=== PATIENT | male | born 1950 | race Caucasian/White ===

== ENCOUNTER 2020-03-11 02:42 | Outpatient (CLI) | payer MEDICARE, SELFPAY ==
[2020-03-11 18:39] LABS: SARS-CoV-2 RNA PCR Negative
== END 2020-03-11 02:43 | disposition home or self-care (01) ==
LOC: ANHCOVIDDT 02:42
PROVIDERS: PCP Internal Medicine; Visit Provider Internal Medicine Gastroenterology
DX: Z01.812 Encounter for preprocedural laboratory examination (principal); Z20.828 Contact with and (suspected) exposure to other viral communicable diseases
CPT/HCPCS: 87635; C9803; U0003

== ENCOUNTER 2020-03-13 00:24 | Day surgery (SDC) | payer MEDICARE, SELFPAY ==
[2020-03-06 13:56] VITALS: BMI 30.4
[2020-03-13 07:19] VITALS: BMI 31.4
[2020-03-13 07:20] VITALS: BP 151/74; PULSE 55; RESP 15; TEMP 36.7; O2SAT 98
--- NOTE | 2020-03-13 07:30 | WPDANESEPPF ---
Anes - Initial Pre Proc Eval Procedure: Operation Date: 03/13/20 08:30 Proposed Procedures p Screening Colonoscopy - Hasmukh Wick MD Date/Time: 03/13/20 07:30 Surgeon: Hasmukh Wick MD Pre Op Diagnosis: Hx Of Polyps Patient Data Age: 69 Gender: M Height: 1.73 m Weight: 93.9 kg Last Vital Signs Temp 36.7 C 03/13/20 07:20 Pulse 55 L 03/13/20 07:20 Resp 15 03/13/20 07:20 BP 151/74 H 03/13/20 07:20 Pulse Ox 98 03/13/20 07:20 Allergies Allergy/AdvReac Type Severity Reaction Status Date / Time tetracycline Allergy Hives Verified 03/13/20 07:18 Home Medications Medication Instructions Recorded Confirmed Type aspirin [Adult Low Dose Aspirin] 81 mg PO DAILY 03/06/20 03/13/20 History bupropion HCl [Wellbutrin XL] 150 mg PO DAILY 03/06/20 03/13/20 History clorazepate dipotassium 7.5 mg PO DAILY 03/06/20 03/13/20 History losartan 50 mg PO DAILY 03/06/20 03/13/20 History metoprolol succinate 50 mg PO DAILY 03/06/20 03/13/20 History Patient hx anesthesia problems: none Family hx anesthesia problems: none PMFSH Past Medical History Medical History Anxiety HTN (hypertension) Obesity Surgical History Surgical History (Updated 03/13/20 @ 07:31 by Beau Fernández MD) Hx of spinal surgery cervical Fusion Social History Social History Gender identity (if verbalized by the patient): Male Anes - Eval Final PreProcedure Day of Procedure 03/13/20 07:30 Patient weight: obese Heart: regular rate and rhythm Lungs: clear to auscultation and normal air movement Airway: Mallampati scale class II Neurological: alert and oriented Last oral intake: >/= 8 hours ASA classification: III Emergent: no Anesthetic plan: proceed Anesthesia type and monitoring: general GIVS Informed Consent: The patient's anesthetic plan and its attendant risks and benefits were discussed with the patient/family/POA. Questions were solicited and answers provided to the satisfaction of the patient/family/POA.
[2020-03-13] MEDS: LACTATED RINGERS 1,000 ML 150 ML IV CONT (07:31)
--- NOTE | 2020-03-13 07:43 | PM.HPGS ---
History of Present Illness History of Present Illness Consent: Risks, benefits, and alternatives have been discussed and questions answered. Patient agrees to proceed with procedure. Chief complaint: Hx Of Polyps Narrative: Maxwell Henry is a 69 year old male with a history of polyps. [facility] Past Medical History Medical History Anxiety HTN (hypertension) Obesity Surgical History Surgical History (Updated 03/13/20 @ 07:31 by Beau Fernández MD) Hx of spinal surgery cervical Fusion Social History Social History Gender identity (if verbalized by the patient): Male Meds Home Medications and Allergies Home Medications Medication Instructions Recorded Confirmed Type aspirin [Adult Low Dose Aspirin] 81 mg PO DAILY 03/06/20 03/13/20 History bupropion HCl [Wellbutrin XL] 150 mg PO DAILY 03/06/20 03/13/20 History clorazepate dipotassium 7.5 mg PO DAILY 03/06/20 03/13/20 History losartan 50 mg PO DAILY 03/06/20 03/13/20 History metoprolol succinate 50 mg PO DAILY 03/06/20 03/13/20 History Allergies Allergy/AdvReac Type Severity Reaction Status Date / Time tetracycline Allergy Hives Verified 03/13/20 07:18 Vital Signs Vital Signs - 24 hr 03/13/20 07:20 Temperature 36.7 C Pulse Rate 55 L Respiratory Rate 15 Blood Pressure 151/74 H Pulse Oximetry 98 Exam Resp: Auscultation: clear to auscultation bilaterally Cardio: Rate: regular rate Rhythm: regular rhythm GI: GI Palp: Yes Soft to palpation and No Tenderness to palpation present (GI) Assessment and Plan Assessment and plan (1) Personal history of colonic polyps: Code(s): Z86.010 - Personal history of colonic polyps Status: Acute Assessment and Plan: Colonoscopy with possible biopsy or polypectomy or cautery or injection of substances.
[2020-03-13 08:43] VITALS: BP 88/56; PULSE 61; RESP 21; O2SAT 96
[2020-03-13 08:53] VITALS: BP 105/68; PULSE 61; RESP 22; O2SAT 97
[2020-03-13 09:03] VITALS: BP 112/75; PULSE 56; RESP 21; O2SAT 97
[2020-03-13 09:10] VITALS: BP 114/68; PULSE 56; RESP 20; O2SAT 97
== END 2020-03-13 09:18 | disposition home or self-care (01) ==
PROVIDERS: PCP Internal Medicine; Visit Provider Internal Medicine Gastroenterology
PROC: 0DJD8ZZ Inspection of Lower Intestinal Tract, Via Natural or Artificial Opening Endoscopic (ICD-10-PCS; CPT 45378; principal; 2020-03-13 08:30)
DX: Z12.11 Encounter for screening for malignant neoplasm of colon (principal); K62.1 Rectal polyp; I10 Essential (primary) hypertension; F41.9 Anxiety disorder, unspecified; Z79.82 Long term (current) use of aspirin; E66.9 Obesity, unspecified; Z68.31 Body mass index [BMI] 31.0-31.9, adult; Z98.1 Arthrodesis status
CPT/HCPCS: 45380; 88305; J2704; J7120

== ENCOUNTER 2020-07-14 08:09 | Outpatient (CLI) | payer MEDICARE, SELFPAY ==
--- NOTE | ~2020-07-14 | XR_ITS ---
EXAMINATION: XR chest 2V DATE: 07/14/2020 08:37 INDICATION: Prostate cancer TECHNIQUE: PA and lateral views of the chest are obtained. COMPARISON: None available FINDINGS: The lungs are free of acute opacities. There is no pleural effusion or pneumothorax. The ca rdiomediastinal silhouette is normal. There is mild thoracic spondylosis. There are partially imaged changes of cervical fusion procedure. IMPRESSION: 1. No acute cardiopulmonary abnormality. Reviewed, dictated and finalized at location A. RECONDITIONER
--- NOTE | ~2020-07-14 | NM_ITS ---
NM bone scan whole body INDICATION: Prostate cancer TECHNIQUE: The patient was injected with 24.2 mCi Tc 99m HDP. Gamma camera images of the region of i nterest and whole body were obtained. COMPARISON: None FINDINGS: There is mild uptake in the shoulders, right elbow, left knee, left ankle and right foot, c ompatible with degenerative joint disease. No suspicious foci of uptake are identified to suggest met astases. IMPRESSION: 1: Normal bone scan for age. Reviewed, dictated and finalized at location A. R RUNNER
== END 2020-07-14 08:10 | disposition home or self-care (01) ==
PROVIDERS: PCP Internal Medicine; Visit Provider Urology
DX: C61 Malignant neoplasm of prostate (principal)
CPT/HCPCS: 71046; 78306; A9561

== ENCOUNTER 2020-07-21 09:55 | Outpatient (CLI) | payer MEDICARE, SELFPAY ==
--- NOTE | ~2020-07-21 | MR_ITS ---
EXAMINATION: MR pelvis wo/w con INDICATION: Prostate cancer TECHNIQUE: Coronal SSFSE ARC, Axial and Coronal 2D FIESTA FatSat, 3D Axial T2 Cube, Axial SSFSE BH AR C, Axial 3D DualEcho BH, Axial SSFSE-IR Be, Axial DWI b=600, pre and dynamic postcontrast Axial LAVA ARC, WATER:POST Cor LAVA-FLEX COMPARISON: None CONTRAST: Multihance, 20 cc FINDINGS: The prostate is mildly enlarged. There is T1 hyperintensity in the peripheral zones of the prostate, left greater than right, likely related to biopsy. There are no pathologically enlarged pel nigel lymph nodes. No dilated loops of bowel are identified. There is no pelvic ascites. There is mild osteoarthritis of the hips. Mild bladder wall thickening likely reflects chronic outlet obstruction. IMPRESSION: 1. Postbiopsy changes of the prostate. 2. No evidence of metastatic disease. Reviewed, dictated and finalized at location A. RINARY PRACTICE MANAGER
[2020-07-21 10:36] LABS: Estimated Glomerular Filt Rate > 60
== END 2020-07-21 09:56 | disposition home or self-care (01) ==
PROVIDERS: PCP Internal Medicine; Visit Provider Urology
DX: C61 Malignant neoplasm of prostate (principal)
CPT/HCPCS: 72197; A9577

== ENCOUNTER 2020-08-31 09:51 | Outpatient (CLI) | payer MEDICARE, SELFPAY ==
[2020-08-31 11:04] LABS: Basophils Absolute Auto 0.1 K/mm3 (0.0-0.1); Basophils Percent Auto 0.5 % (0.2-1.2); Eosinophils Absolute Auto 0.2 K/mm3 (0-0.3); Eosinophils Percent Auto 2.3 % (0-4.4); Hematocrit 46.6 % (42.0-52.0); Immature Granulocyte Absolute 0.03 K/mm3 (0.00-0.031); Immature Granulocyte Percent A 0.3 % (0-0.5); Lymphocytes Absolute Auto 2.75 K/mm3 (0.9-3.2); Lymphocytes Percent Auto 26.8 % (18.3-44.2); Mean Corpuscular HGB Conc 34.3 g/dl (32-36); Mean Corpuscular Hemoglobin 30.1 pg (26-34); Mean Corpuscular Volume 87.8 fl (80-100); Mean Platelet Volume 9.9 fl (7.4-10.4); Monocytes Absolute Auto 1.1 K/mm3 (0.1-0.6); Neutrophils Absolute Auto 6.1 K/mm3 (1.3-6.7); Neutrophils Percent Auto 59.1 % (45.5-73.1); Platelet Count Result 216 k/mm3 (150-375); Red Blood Count 5.31 M/mm3 (4.6-6.20); Red Cell Distribution Width 12.6 % (11.5-14.5); White Blood Count 10.3 K/mm3 (4.5-10.0)
[2020-08-31 11:16] LABS: Alanine Aminotransferase 29 U/L (4-50); Albumin Level 4.2 g/dL (3.5-5.1); Alkaline Phosphatase 62 U/L (38-126); Anion Gap 5 mmol/L (8-16); Aspartate Amino Transferase 38 U/L (17-59); Bilirubin,Total 0.5 mg/dL (0.2-1.3); Blood Urea Nitrogen 17 mg/dL (9-20); Calcium 9.7 mg/dL (8.4-10.2); Carbon Dioxide 30 mmol/L (22-30); Chloride 106 mmol/L (98-107); Estimated Glomerular Filt Rate > 60; Glucose 124 mg/dL (75-110); Potassium 4.6 mmol/L (3.4-5.0); Sodium 141 mmol/L (137-145)
[2020-08-31 11:18] LABS: INR 0.9; Prothrombin Time 13.1 Seconds (11.1-14.7)
[2020-08-31 11:19] LABS: Partial Thromboplastin Time 33.7 SECONDS (22.3-36.8)
[2020-08-31 11:53] LABS: Add Urine Microscopic? NO; Appearance Urine Clear (Clear); Bilirubin Urine Negative (Negative); Blood Urine Negative (Negative); Color Urine Yellow (Yellow); Glucose Urine UA Negative (Negative); Ketones Urine Negative (Negative); Leukocyte Esterase Ur Negative LEU/UL (Negative); Nitrate Urine Negative (Negative); Protein Urine Negative (Negative); Urobilinogen Urine Negative mg/dL (<2.0)
== END 2020-08-31 09:52 | disposition home or self-care (01) ==
PROVIDERS: PCP Internal Medicine; Visit Provider Urology
DX: C61 Malignant neoplasm of prostate (principal); Z01.818 Encounter for other preprocedural examination
CPT/HCPCS: 36415; 80053; 81003; 85025; 85610; 85730; 86850; 86900; 86901

== ENCOUNTER → 2020-09-07 01:47 | Outpatient (CLI) | payer MEDICARE, SELFPAY ==
[2020-09-07 19:34] LABS: SARS-CoV-2 RNA PCR Negative
== END ==
PROVIDERS: PCP Internal Medicine; Visit Provider Urology
DX: Z01.812 Encounter for preprocedural laboratory examination (principal); Z20.822 Contact with and (suspected) exposure to COVID-19
CPT/HCPCS: C9803; U0003; U0005

== ENCOUNTER 2020-09-10 00:19 | Day surgery (SDC) | payer MEDICARE, SELFPAY ==
[2020-08-31 10:40] VITALS: BP 153/81; PULSE 58; RESP 16; TEMP 36.7; O2SAT 99; BMI 31.4
--- NOTE | 2020-09-08 09:41 | PM.IMHP ---
H&P: HPI History of Present Illness Date/Time: 09/08/20 09:41 Chief Complaint: Prostate cancer Narrative: Maxwell Henry Sr. is a 70 year old male originally referred with a PSA of 5.68. Prostate ultrasound and biopsy revealed adenocarcinoma Kelvin 6 and 3+4=7 in 11 of 12 cores. Staging MRI scan of the abdomen and pelvis, bone scan and chest x-ray were unremarkable. This represents an unfavorable intermediate risk prostate cancer. Prostate volume by ultrasound was 23.6 grams. After thorough discussion of the therapeutic options including active surveillance, radiation therapy and its various forms, androgen deprivation and radical prostatectomy he has elected for the latter. He is aware the risk of this procedure including, but not limited to, adverse cardiopulmonary events, rectal injury, urinary incontinence and erectile dysfunction. Review of Systems Cardiovascular: Cardiovascular: Denies chest pain, Denies lightheadedness, Denies palpitations and Denies dyspnea Respiratory: Respiratory: Denies dyspnea Gastrointestinal: Gastrointestinal: Denies diarrhea, Denies nausea and Denies vomiting Genitourinary: Genitourinary: Denies hematuria and Denies dysuria Endocrine: Endocrine: Denies palpitations PMFSH Past Medical History Medical History Anxiety HTN (hypertension) Obesity Surgical History Surgical History Hx of spinal surgery cervical Fusion Social History Social History Smoking packs per day: 0.5 Smoking cigarettes per day: 10.0 Years smoked: 33 Smoking pack-years: 16.50 Smoking status: Former smoker Tobacco type: cigarettes Gender identity (if verbalized by the patient): Male Spiritual care concerns: No Meds Home Medications and Allergies Home Medications Medication Instructions Recorded Confirmed Type aspirin [Adult Low Dose Aspirin] 81 mg PO EVERY OTHER DAY 03/06/20 08/31/20 History bupropion HCl [Wellbutrin XL] 150 mg PO QAM 03/06/20 08/31/20 History clorazepate dipotassium 3.75 mg PO QAM 03/06/20 08/31/20 History losartan 50 mg PO DAILY 03/06/20 08/31/20 History metoprolol succinate 100 mg PO QAM 03/06/20 08/31/20 History ascorbic acid (vitamin C) 500 mg PO DAILY 08/31/20 08/31/20 History juykmkxu-zmumx-pfh3-C-jacinda-bor 1 tablet PO DAILY 08/31/20 08/31/20 History [Vczfotvt-Oqdje-MHW(with boron)] pqwsr-bwfky-2-rgz-rtu-zuulej 1 cap PO DAILY 08/31/20 08/31/20 History [krill oil] magnesium oxide 400 mg PO DAILY 08/31/20 08/31/20 History metoprolol succinate 50 mg PO HS 08/31/20 08/31/20 History multivitamin [Multi-Vitamin] 1 tablet PO DAILY 08/31/20 08/31/20 History saw palmetto 450 mg PO DAILY 08/31/20 08/31/20 History Allergies Allergy/AdvReac Type Severity Reaction Status Date / Time tetracycline Allergy Hives Verified 08/31/20 09:59 Exam Const: General: no acute distress Resp: Effort & Inspection: normal respiratory effort GI: Inspection: non-distended GI Palp: No abdominal tenderness and No Guarding due to palpation present (GI) Auscultation: normal bowel sounds Assessment and Plan Assessment and plan (1) Prostate cancer: Code(s): C61 - Malignant neoplasm of prostate Status: Acute Assessment and Plan: Robotic assisted radical prostatectomy with bilateral pelvic lymphadenectomy.
--- NOTE | 2020-09-09 09:52 | WPDANESEPPF ---
Anes - Initial Pre Proc Eval Procedure: Operation Date: 09/10/20 07:30 Proposed Procedures p Robotic Assisted Laparoscopic Prostatectomy With Pelvic Lymph Node Dissection - Chip Ramos MD Date/Time: 09/09/20 09:52 Surgeon: Chip Ramos MD Pre Op Diagnosis: Prostate Cancer Patient Data Age: 70 Gender: M Height: 1.75 m Weight: 96.4 kg Last Vital Signs Temp 36.7 C 08/31/20 10:40 Pulse 58 L 08/31/20 10:40 Resp 16 08/31/20 10:40 BP 153/81 H 08/31/20 10:40 Pulse Ox 99 08/31/20 10:40 Allergies Allergy/AdvReac Type Severity Reaction Status Date / Time tetracycline Allergy Hives Verified 09/10/20 06:17 Home Medications Medication Instructions Recorded Confirmed Type aspirin [Adult Low Dose Aspirin] 81 mg PO EVERY OTHER DAY 03/06/20 09/10/20 History bupropion HCl [Wellbutrin XL] 150 mg PO QAM 03/06/20 09/10/20 History clorazepate dipotassium 3.75 mg PO QAM 03/06/20 09/10/20 History losartan 50 mg PO DAILY 03/06/20 09/10/20 History metoprolol succinate 100 mg PO QAM 03/06/20 09/10/20 History ascorbic acid (vitamin C) 500 mg PO DAILY 08/31/20 09/10/20 History qvnfioid-ewzcm-mnd6-C-jacinda-bor 1 tablet PO DAILY 08/31/20 09/10/20 History [Xsknmcqi-Dujqp-KSQ(with boron)] udffe-iqekd-8-hlz-eaz-azuonf 1 cap PO DAILY 08/31/20 09/10/20 History [krill oil] magnesium oxide 400 mg PO DAILY 08/31/20 09/10/20 History metoprolol succinate 50 mg PO HS 08/31/20 09/10/20 History multivitamin [Multi-Vitamin] 1 tablet PO DAILY 08/31/20 09/10/20 History saw palmetto 450 mg PO DAILY 08/31/20 09/10/20 History Patient hx anesthesia problems: none Family hx anesthesia problems: none PMFSH Past Medical History Medical History (Updated 09/09/20 @ 09:51 by Bang Jones DO) Anxiety Depression HTN (hypertension) Obesity Prostate cancer Surgical History Surgical History Hx of spinal surgery cervical Fusion Social History Social History Smoking packs per day: 0.5 Smoking cigarettes per day: 10.0 Years smoked: 33 Smoking pack-years: 16.50 Smoking status: Former smoker Tobacco type: cigarettes Living arrangements: with family Gender identity (if verbalized by the patient): Male Spiritual care concerns: No Anes - Eval Final PreProcedure Day of Procedure 09/09/20 09:52 Patient weight: obese Heart: regular rate and rhythm Lungs: clear to auscultation and normal air movement Airway: Mallampati scale class 1 Neurological: alert and oriented Last oral intake: >/= 8 hours ASA classification: III Emergent: no Anesthetic plan: proceed Anesthesia type and monitoring: general ETT and standard monitoring Informed Consent: The patient's anesthetic plan and its attendant risks and benefits were discussed with the patient/family/POA. Questions were solicited and answers provided to the satisfaction of the patient/family/POA.
[2020-09-10] VITALS (15 sets, daily range): BP systolic 114–139; BP diastolic 57–79; PULSE 65–82; RESP 14–20; TEMP 35.6–36.7; O2SAT 95–100
--- NOTE | 2020-09-10 06:07 | WPDHPUPDATE1 ---
History and Physical Update Update Date/Time: 09/10/20 06:07 History and Physical has been reviewed, including an updated exam of the patient. There are NO changes in the patient's condition. Risks, benefits, and alternatives have been discussed and questions answered. Patient agrees to proceed with procedure.
[2020-09-10] MEDS: LACTATED RINGERS 1,000 ML 30 ML IV CONT ×3 (06:41→11:50)
[2020-09-10] MEDS: ceFAZolin 2 GM/D5W 50 ML 2 GM/50 ML BAG IVPB (07:26)
--- NOTE | 2020-09-10 11:14 | PM.PROC ---
Procedure Note - Detailed Date of procedure: 09/10/20 Pre-op diagnosis: Prostate Cancer Post-op diagnosis: same Procedure performed: Robotic assisted laparoscopic prostatectomy with bilateral pelvic lymphadenectomy Description of procedure: The patient was brought to the operative suite, where he was prepped and draped in routine sterile fashion while in a dorsal lithotomy, deep Trendelenburg position. A supraumbilical 10 mm trocar was placed after insufflation of the abdomen with a Veress needle. Three robotic ports were then placed under direct vision. Two of these were placed in the right lower quadrant - 10 cm and 20 cm lateral to, and in line with, the umbilicus. A third robotic trocar was placed 10 cm to the left of the umbilicus, and 20 cm to the left of the umbilicus, a 12 mm standard laparoscopic trocar was placed to be used as an chef assistant port. Lastly, a 5 mm trocar was placed in the left upper quadrant midway between the umbilicus and the left robotic trocar. Attention was then turned to the prostatectomy. I opted for a posterior approach in this patient. An incision was made in the parietal peritoneum along the posterior bladder/posterior prostate about 2 cm above the reflection of the peritoneum over the anterior rectum. The seminal vesicles and vas deferens were immediately identified. Dissection is undertaken in a fashion so as to avoid electrocautery as much as possible, particularly near the tips of the seminal vesicles. Dissection was also carried out in the midline so as to avoid any encounters with the ureters. The vas deferens and the seminal vesicles were dissected in their entirety to the base of the prostate. The plane anterior to Denoviller's fascia, anterior to the rectum and posterior to the prostate was then developed. I then dropped the bladder by incising the anterior parietal peritoneum just lateral to the median umbilical ligaments bilaterally. The bladder was dropped from the anterior abdominal and pelvic wall. The endopelvic fascia was identified and incised bilaterally, allowing for dissection of the posterior-lateral aspect of the prostate. The puboprostatic ligaments were transected near their origin from the posterior pubic ramus. This posterior lateral dissection of the prostate is also undertaken in a fashion so as to avoid electrocautery as much as possible. The dorsal vein of the penis is then secured with an 0 -Vicryl ligature. Attention is then turned to the bladder neck. The anterior bladder neck is incised at the vesico-prostatic junction. The previously placed urethral catheter was drawn through the urethrotomy. A very small bladder neck was maintained throughout the remainder of this dissection. The posterior bladder neck was incised in a fashion so as to avoid any injury to the ureteral orifices. Posterior bladder neck dissection is difficult due to adherence of the posterior bladder neck to the tissue posteriorly. During the course of this dissection each seminal vesicle was amputated at its origin in the prostate. Again, the small aperture of the bladder neck was maintained. The previously dissected vas deferens were brought thru the posterior bladder neck incision. The lateral prostatic pedicles were then carefully dissected from the lateral aspect of the prostate bilaterally. The prostatic pedicles were secured with Weck clips and transected. The neurovascular bundles were carefully dissected from the posterior-lateral aspect of the prostate. The dorsal vein of the penis was incised with electrocautery. Using cold scissors, the urethra was incised. After withdrawing the previously placed urethral catheter, the posterior urethra was sharply incised, as was the rectalurethralis muscle. Attention was then turned to a bilateral pelvic lymphadenectomy. The limits of this dissection were similar bilaterally. Specifically, the limits were the bifurcation of the common iliac vein proximally, the inguinal lig
--- NOTE | 2020-09-10 12:45 | ADMGEN ---
This patient, Maxwell Henry Sr., was admitted to Medical Room 259-01. Patient/family oriented to hospital policies and general routines including ID bracelet, bed and alarms, visiting hours, pain management, procedures, bathroom and other care routines, personal items, smoking policy, room service/diet, and visiting hours. Information on how to activate the Rapid Response Team has been discussed. Patient/Family are encouraged to report perceived risks to care and to ask questions if they do not understand what they are told or what they should do.
[2020-09-10] MEDS: LACTATED RINGERS 1,000 ML 125 ML IV CONT ×2 (13:50→23:36)
[2020-09-10] MEDS: DOCUSATE SODIUM 100 MG CAPSULE PO (17:08)
[2020-09-10] MEDS: METOPROLOL SUCCINATE EXT REL 50 MG TABCR PO (21:23)
[2020-09-11 00:20] VITALS: BP 127/54; PULSE 81; RESP 18; TEMP 36.8; O2SAT 97
[2020-09-11 05:55] LABS: Hematocrit 37.1 % (42.0-52.0); Hemoglobin 12.3 g/dL (14.0-18.0)
[2020-09-11 05:56] VITALS: BP 104/67; PULSE 64; RESP 16; TEMP 36.5; O2SAT 97
[2020-09-11 06:04] LABS: Anion Gap 5 mmol/L (8-16); Blood Urea Nitrogen 13 mg/dL (9-20); Calcium 8.2 mg/dL (8.4-10.2); Carbon Dioxide 30 mmol/L (22-30); Chloride 102 mmol/L (98-107); Estimated CRCL calculation 83 ml/min; Estimated Glomerular Filt Rate > 60; Glucose 120 mg/dL (75-110); Potassium 3.7 mmol/L (3.4-5.0); Sodium 137 mmol/L (137-145)
--- NOTE | 2020-09-11 06:48 | WPDUROPN2 ---
Subjective Subjective Date/Time Seen: 09/11/20 06:48 POD #1 RALP: comfortable, tolerating diet Review of Systems Cardiovascular: Cardiovascular: Denies chest pain, Denies lightheadedness, Denies palpitations and Denies dyspnea Respiratory: Respiratory: Denies dyspnea Gastrointestinal: Gastrointestinal: Denies diarrhea, Denies nausea and Denies vomiting Genitourinary: Genitourinary: Denies hematuria and Denies dysuria Endocrine: Endocrine: Denies palpitations Exam Const: General: no acute distress Resp: Effort & Inspection: normal respiratory effort GI: Inspection: non-distended and other (incisions clean and dry) GI Palp: No abdominal tenderness and No Guarding due to palpation present (GI) Auscultation: normal bowel sounds Objective Data Vital Signs Vital Signs: Vital Signs - 24 hr 09/10/20 11:14 09/10/20 11:15 09/10/20 11:30 Temperature 97.7 F Pulse Rate 77 70 68 Respiratory Rate 16 15 17 Blood Pressure 125/66 131/66 118/58 L Pulse Oximetry 100 100 100 09/10/20 11:45 09/10/20 12:00 09/10/20 12:15 Temperature Pulse Rate 72 71 76 Respiratory Rate 16 14 14 Blood Pressure 126/64 132/60 122/69 Pulse Oximetry 97 99 98 09/10/20 12:30 09/10/20 12:45 09/10/20 13:00 Temperature 96.0 F L 96.6 F L Pulse Rate 79 75 72 Respiratory Rate 14 16 16 Blood Pressure 123/70 129/71 129/66 Pulse Oximetry 96 99 99 09/10/20 13:30 09/10/20 14:35 09/10/20 19:58 Temperature 96.8 F L 96.9 F L 97.9 F Pulse Rate 73 73 82 Respiratory Rate 16 16 18 Blood Pressure 129/71 126/69 114/57 L Pulse Oximetry 100 97 95 09/10/20 21:23 09/11/20 00:20 09/11/20 05:56 Temperature 98.2 F 97.7 F Pulse Rate 80 81 64 Respiratory Rate 18 16 Blood Pressure 127/54 L 104/67 Pulse Oximetry 97 97 Intake/Output Intake/Output: Intake & Output 09/08/20 09/09/20 09/10/20 09/11/20 23:59 23:59 23:59 23:59 Intake Total 2730 800 Output Total 400 1700 Balance 2330 -900 Meds/Results Medications: Active Medications Generic Name Dose Route Start Last Admin Trade Name Freq PRN Reason Stop Dose Admin Bupropion HCl 150 mg 09/11/20 09:00 Bupropion Hcl Xl (24 Hr) 150 Mg Tabcr PO QAM [facility] Clorazepate Dipotassium 3.75 mg 09/11/20 09:00 Clorazepate Dipotassium (*Crx) 7.5 Mg Tablet PO QAM [facility] Docusate Sodium 100 mg 09/10/20 17:00 09/10/20 17:08 Docusate Sodium 100 Mg Capsule PO 100 mg BID LISANDRO Administration Hyoscyamine 0.125 mg 09/10/20 12:31 Hyoscyamine Sulfate 0.125 Mg Tablet SUBLINGUAL Q4H PRN Bladder Spasm Lactated Ringer's 1,000 mls @ 125 mls/hr 09/10/20 12:31 09/10/20 23:36 Lr - Lactated Ringers Iv IV CONT 125 mls/hr .Q8H LISANDRO Administration Acetaminophen 1,000 mg in 100 mls @ 400 mls/hr 09/10/20 19:00 09/11/20 05:45 Ofirmev 1,000 Mg Ivpb IVPB 09/11/20 12:01 150 mls/hr Q6H LISANDRO Administration Ketorolac Tromethamine 15 mg 09/10/20 12:31 Ketorolac 15 Mg/Ml Vial (*Bkc) IV PUSH 09/11/20 12:32 Q6H PRN Pain Rated 4-6 Levofloxacin 500 mg 09/11/20 09:00 Levofloxacin Tab 500 Mg Tablet PO DAILY [facility] Losartan Potassium 50 mg 09/11/20 09:00 Losartan Potassium 50 Mg Tablet PO DAILY [facility] Metoprolol Succinate 100 mg 09/11/20 09:00 Metoprolol Succinate Ext Rel 100 Mg Tabcr PO QAM [facility] Metoprolol Succinate 50 mg 09/10/20 21:00 09/10/20 21:23 Metoprolol Succinate Ext Rel 50 Mg Tabcr PO 50 mg HS LISANDRO Administration Naloxone HCl 0.1 mg 09/10/20 12:31 Naloxone Hcl 0.4 Mg/Ml Vial IV PUSH Q2M PRN Opiate Reversal Ondansetron HCl 4 mg 09/10/20 12:31 Ondansetron Inj 4 Mg/2 Ml Vial IV PUSH Q6H PRN Nausea And Vomiting Labs Labs: Laboratory Results - last 24 hr 09/11/20 09/11/20 05:15 05:15 Hgb 12.3 L D Hct 37.1 L Sodium 137 Potassium 3.7 Chloride 102 Carbon Dioxide 30 Anion Gap 5 L BUN 13 Creatinine 0.80 Estim Creat Clear Calc
[2020-09-11 07:34] VITALS: BP 126/51; PULSE 64; RESP 12; TEMP 36.4; O2SAT 100
--- NOTE | 2020-09-11 08:05 | WPDANESPN ---
Anes - Prog Note Post-Op Date/Time: 09/11/20 08:05 Cardiovascular status: normal Respiratory status: normal Airway patency: baseline Mental status: baseline Post-Op hydration status: normal Vital Signs: Last Vital Signs Temp 36.4 C 09/11/20 07:34 Pulse 64 09/11/20 07:34 Resp 12 09/11/20 07:34 BP 126/51 L 09/11/20 07:34 Pulse Ox 100 09/11/20 07:34 Pain Score (VAS): 4 I/O: Intake & Output 09/10/20 09/11/20 09/11/20 23:59 07:59 15:59 Intake Total 1480 800 Output Total 400 1700 Balance 1080 -900 Laboratory Tests 09/11/20 05:15 09/11/20 05:15 09/11/20 09/11/20 05:15 05:15 Hgb 12.3 L D Hct 37.1 L Sodium 137 Potassium 3.7 Chloride 102 Carbon Dioxide 30 Anion Gap 5 L BUN 13 Creatinine 0.80 Estim Creat Clear Calc 83 Estimated GFR > 60 Glucose 120 H Calcium 8.2 L Post-procedural complaints: none Patient Feedback: Patient satisfied with anesthetic care.
[2020-09-11] MEDS: LACTATED RINGERS 1,000 ML 125 ML IV CONT (09:58)
[2020-09-11] MEDS: buPROPion HCL XL (24 HR) 150 MG TABCR PO (10:02)
[2020-09-11] MEDS: DOCUSATE SODIUM 100 MG CAPSULE PO (10:03)
[2020-09-11] MEDS: LOSARTAN POTASSIUM 50 MG TABLET PO (10:04)
[2020-09-11 10:05] VITALS: PULSE 70
[2020-09-11] MEDS: METOPROLOL SUCCINATE EXT REL 100 MG TABCR PO (10:05)
[2020-09-11] MEDS: KETOROLAC 15 MG/ML VIAL (*BKC) IV PUSH (12:21)
--- NOTE | 2020-09-11 12:40 | PM.DS ---
DS: Admitting Diagnosis Admitting Diagnosis Admitting Diagnosis: Prostate cancer DS: Discharge Diagnosis Discharge Diagnosis (1) Prostate cancer: Code(s): C61 - Malignant neoplasm of prostate Status: Acute DS: Summary Hospital Course Hospital Course: This patient was admitted on the morning of his planned robotic prostatectomy. This procedure was uneventful, as was his postoperative course. By the evening of the procedure he was sitting at the bedside in tolerating a liquid diet. The following morning he was ambulating freely and tolerating regular food. His catheter drainage remained essentially clear throughout. His postoperative hemoglobin and serum creatinine were unremarkable. At the time of discharge he has been instructed in appropriate care for his Victoria catheter with both a leg bag and bedside bag. He will be discharged with plans to follow-up in 1 week with a cystogram. Time Spent with Patient Time attestation: Total time spent providing and/or coordinating discharge services: 20 min. Exam Const: General: no acute distress Resp: Effort & Inspection: normal respiratory effort GI: Inspection: non-distended GI Palp: No abdominal tenderness and No Guarding due to palpation present (GI) Auscultation: normal bowel sounds DS: Data Data Completed and Pending Pending studies at discharge: Pending at discharge 09/10/20 11:02 Surgical [PTH] Routine Labs on day of discharge: Labs from last 24 hours 09/11/20 09/11/20 05:15 05:15 Hgb 12.3 L D Hct 37.1 L Sodium 137 Potassium 3.7 Chloride 102 Carbon Dioxide 30 Anion Gap 5 L BUN 13 Creatinine 0.80 Estim Creat Clear Calc 83 Estimated GFR > 60 Glucose 120 H Calcium 8.2 L Discharge Plan Discharge Patient Disposition: Home, Self-Care Discharge Instructions: 1) Victoria catheter -> leg bag / bedside bag at night. 2) No lifting/straining >15lbs. x3 weeks. 3) No driving x1-week. 4) Resume normal, pre-operative diet. 5) My office will contact regarding follow-up in 1-week with cystogram. Stand Alone Forms: General Discharge Instructions Discharge Orders: Discharge Order (Routine); Ordered 09/11/20 Ordered By: Chip Ramos Discharge Medications: New hydrocodone-acetaminophen 5-325 mg tablet 1 - 2 tablet PO Q6H PRN (Reason: pain) Qty: 30 RF: 0 ciprofloxacin HCl 500 mg tablet 500 mg PO Q12H Qty: 10 RF: 0 hyoscyamine sulfate 0.125 mg tablet 0.125 mg PO Q6H PRN (Reason: bladder spasms) Qty: 20 RF: 2 docusate sodium [Colace] 100 mg capsule 100 mg PO DAILY Qty: 30 RF: 0 Continued bupropion HCl [Wellbutrin XL] 150 mg tablet extended release 24 hr 150 mg PO QAM RF: 0 metoprolol succinate 100 mg tablet extended release 24 hr 100 mg PO QAM RF: 0 losartan 25 mg tablet 50 mg PO DAILY RF: 0 clorazepate dipotassium 7.5 mg tablet 3.75 mg PO QAM RF: 0 metoprolol succinate 50 mg Tablet Extended Release 24 Hr 50 mg PO HS RF: 0 magnesium oxide 400 mg magnesium Capsule 400 mg PO DAILY RF: 0 Held aspirin [Adult Low Dose Aspirin] 81 mg Tablet,Delayed Release (Dr/Ec) 81 mg PO EVERY OTHER DAY RF: 0 Hold Instructions: Resume on 09/16/20. multivitamin Tablet 1 tablet PO DAILY RF: 0 Hold Instructions: Resume on 09/16/20. [id number]-[id number]-[id number]-jacinda-bor 500-416.6-20 mg Tablet 1 tablet PO DAILY RF: 0 Hold Instructions: Resume on 09/16/20. [id number]-[id number]-[id number]-[id number]-[id number] [krill oil] 344-42-40-50 mg Capsule 1 cap PO DAILY RF: 0 Hold Instructions: Resume on 09/16/20. ascorbic acid (vitamin C) 500 mg Tablet 500 mg PO DAILY RF: 0 Hold Instructions: Resume on 09/16/20. Discontinued saw palmetto 450 mg Capsule 450 mg PO DAILY RF: 0
[2020-09-11 13:44] VITALS: BP 124/70; PULSE 71; RESP 14; TEMP 36.9; O2SAT 97
--- NOTE | 2020-09-11 13:48 | PC.NURSE ---
On 09/11/20, the student, [Ja Dimas ], provided care and completed [facility] documentation on this patient. I have reviewed the student's documentation and agree with the findings.
== END 2020-09-11 14:00 | disposition home or self-care (01) ==
LOC: ANHSURGERY 05:59 → ANH2MED 12:33
PROVIDERS: PCP Internal Medicine; Visit Provider Urology
PROC: 0VT04ZZ Resection of Prostate, Percutaneous Endoscopic Approach (ICD-10-PCS; CPT 55867; principal; 2020-09-10 07:30)
DX: C61 Malignant neoplasm of prostate (principal); I10 Essential (primary) hypertension; F41.9 Anxiety disorder, unspecified; Z87.891 Personal history of nicotine dependence; Z79.82 Long term (current) use of aspirin; F32.9 Major depressive disorder, single episode, unspecified; E66.9 Obesity, unspecified; Z68.30 Body mass index [BMI] 30.0-30.9, adult
CPT/HCPCS: 55866; 38571; S2900; 36415; 80048; 80053; 81003; 85014; 85018; 85025; 85610; 85730; 86850; 86900; 86901; 88305; 88307; 88309; A9270; C9803; J0131; J0330; J0690; J1100; J1170; J1885; J2250; J2370; J2405; J2704; J2710; J3010; J7030; J7120; U0003; U0005

== ENCOUNTER 2020-09-18 12:06 | Outpatient (CLI) | payer MEDICARE, SELFPAY ==
--- NOTE | ~2020-09-18 | XR_ITS ---
EXAMINATION: CYSTOGRAM DATE: 09/18/2020 12:51 INDICATION: Prostate cancer. TECHNIQUE: Initial cloth framer radiograph of the pelvis was performed. There was retrograde administration of Omnipaque 350 mixed with saline contrast into patient's existing pedroza catheter. Fluoroscopic omkar ges of the pelvis were obtained. A post-void image was also performed. A total of 21 fluoroscopic omkar ges were obtained. Fluoroscopy exposure time was 1.1 minutes. FINDINGS: Storage Management Consultant image demonstrates several phleboliths in the pelvis. Subsequent images demonstrate contrast fi lling the bladder. There is a mild trabeculated contour to the posterior bladder wall particularly on the left where contrast fills a small kidney randolph shaped diverticulum with smooth margins. No extra mucosal contrast extravasation to suggest bladder leak. IMPRESSION: 1. Small bladder diverticulum arising along the left posterolateral bladder which may be related to chronic outlet obstruction. No bladder leak. Reviewed, dictated and finalized at location A. HARGE RN IMPRESSION: 1. Small bladder diverticulum arising along the left posterolateral bladder wh ich may be related to chronic outlet obstruction. No bladder leak.
== END 2020-09-18 12:07 | disposition home or self-care (01) ==
PROVIDERS: PCP Internal Medicine; Visit Provider Urology
DX: C61 Malignant neoplasm of prostate (principal)
CPT/HCPCS: 51600; 74430; Q9967

== ENCOUNTER 2020-09-29 08:17 | Outpatient (CLI) | payer MEDICARE, SELFPAY | END 2020-09-29 08:18 | disposition home or self-care (01) | LOC: ANHCOVIDVC 08:17 | PROVIDERS: PCP Family Medicine | DX: Z23 Encounter for immunization (principal) | CPT/HCPCS: 0001A; 91300 ==

== ENCOUNTER 2020-10-20 08:25 | Outpatient (CLI) | payer MEDICARE, SELFPAY | END 2020-10-20 08:26 | disposition home or self-care (01) | LOC: ANHCOVIDVC 08:25 | PROVIDERS: PCP Family Medicine | DX: Z23 Encounter for immunization (principal) | CPT/HCPCS: 0002A; 91300 ==

== ENCOUNTER 2024-04-24 07:48 | Outpatient (CLI) | payer MEDICARE, SELFPAY ==
--- NOTE | ~2024-04-24 | XR_ITS ---
XR shoulder RT min 2V Ordering provider: Kendy Turner, T[employer] CURATIVE SPECIALIST History: . R shoulder pain . Comparison: None. FINDINGS: BONES: No acute fracture or dislocation. JOINT SPACES: The acromioclavicular joint is normal. The glenohumeral joint is normal. SOFT TISSUES: Normal. IMPRESSION: No acute osseous abnormality right shoulder. Reviewed, dictated and finalized at location A.
== END 2024-04-24 07:49 | disposition home or self-care (01) ==
PROVIDERS: PCP Internal Medicine; Visit Provider Nurse Practitioner Family
DX: M25.511 Pain in right shoulder (principal)
CPT/HCPCS: 73030